=== PATIENT | female | born 1955 | race Caucasian/White ===

== ENCOUNTER → 2016-07-25 | Outpatient (CLI) | payer OTHER ==
[~2016-07-25] MED LIST: ASP81TEC; FISH OIL; NF-ESOM40C; NSTR15O TP; SULF1TAB38 PO
--- NOTE | 2016-07-25 08:39 | Diagnostic Imaging Report ---
EXAMINATION: Bilateral diagnostic mammogram with a Computer Aided Detection (CAD) system. INDICATION: Followup calcifications in the upper outer aspect of the right breast. COMPARISON: 05/18/2015 and other prior exams. FINDINGS: The right breast calcifications appear unchanged with minimal heterogeneity, in favor of dystrophic calcifications or related to a small calcifying fibroadenoma. Background scattered fibroglandular densities are seen without significant change. Allowing for technique and positional differences, no suspicious change is seen. IMPRESSION: No significant change. ACR BI-RADS Category 2: Benign findings. Result letter will be mailed to the patient. Note: At least 10% of breast cancer is not imaged by mammography. Dictated by: Dictated on workstation # [id number]
== END ==
LOC: RAD 07:31
PROVIDERS: ATTEND Nurse Practitioner Family
DX: R92.8 Other abnormal and inconclusive findings on diagnostic imaging of breast (principal)
CPT/HCPCS: 77066

== ENCOUNTER → 2016-07-26 | Outpatient (CLI) | payer OTHER ==
--- NOTE | 2016-07-26 13:55 | Diagnostic Imaging Report ---
PROCEDURE: US abdomen complete. TECHNIQUE: Multiple real-time grayscale images were obtained over the abdomen in various projections. INDICATION: Right upper quadrant pain. FINDINGS: The pancreas is obscured by bowel gas. The liver is slightly heterogeneous in echotexture with no definite focal lesion seen. There is hepatopetal flow in the portal vein. There is obscured CBD by bowel gas with no intrahepatic biliary dilatation evident. The gallbladder demonstrates no stones or wall thickening. Sonographic Klein's sign is reportedly negative. The spleen is 9.7 cm in length, normal. The distal segment of the abdominal aorta is only visualized and appears unremarkable. The IVC is largely obscured. The right kidney is 9.4 cm and the left kidney is 10.4 cm in length. There is mild cortical atrophy in the kidneys seen with no focal mass. No hydronephrosis. No fluid collection or ascites seen. IMPRESSION: There is slight cortical thinning in the kidneys. No hydronephrosis. No gallstones or evidence of cholecystitis. Dictated by: Dictated on workstation # [id number]
== END ==
LOC: RAD 07:37
PROVIDERS: ATTEND Nurse Practitioner Family
DX: R10.11 Right upper quadrant pain (principal)
CPT/HCPCS: 76700

== ENCOUNTER → 2016-08-14 | Outpatient (CLI) | payer OTHER ==
--- NOTE | 2016-08-14 10:07 | Diagnostic Imaging Report ---
EXAMINATION: Renal ultrasound. INDICATION: Renal atrophy. FINDINGS: The right kidney is 9.7 and the left kidney is 10.5 cm in length. There is no hydronephrosis or focal lesion. There is mild atrophy seen in the renal parenchyma. The urinary bladder appears unremarkable. IMPRESSION: Mild renal atrophy. Dictated by: Dictated on workstation # [id number]
== END ==
LOC: RAD 08:54
PROVIDERS: ATTEND Nurse Practitioner Family
DX: N26.1 Atrophy of kidney (terminal) (principal)
CPT/HCPCS: 76770

== ENCOUNTER → 2017-04-03 | Outpatient (CLI) | payer SELFPAY ==
--- NOTE | 2017-04-03 09:46 | Diagnostic Imaging Report ---
EXAMINATION: Ultrasound noninvasive. INDICATION: Leg pain and swelling Routine images were obtained. The ankle-brachial index on the right is 1.08, on the left 1.11 (normal 1.00 or greater). IMPRESSION: The ankle-brachial indices are within normal limits. Dictated by: Dictated on workstation # [id number]
--- NOTE | 2017-04-03 09:47 | Diagnostic Imaging Report ---
Procedure: Bilateral lower extremity venous Doppler. Indication: Leg pain and swelling. Findings: Spectral and color flow imaging of the deep venous system of each lower extremity was performed. There are no prior studies available for comparison. There is generally good blood flow and compressibility at all levels. There is no evidence for a deep venous stenosis of either lower extremity. Impression: There is no evidence for a deep venous of either lower extremity. Dictated by: Dictated on workstation # [id number]
== END ==
LOC: RAD 07:25
PROVIDERS: ATTEND Nurse Practitioner Family
DX: M79.89 Other specified soft tissue disorders (principal)
CPT/HCPCS: 93922; 93970

== ENCOUNTER → 2017-09-11 | Outpatient (CLI) | payer OTHER ==
--- NOTE | 2017-09-11 10:02 | Diagnostic Imaging Report ---
PROCEDURE: US Renal Bilateral. TECHNIQUE: Multiple real-time grayscale images were obtained over the kidneys in various projections bilaterally. INDICATION: Bilateral renal atrophy. FINDINGS: Right kidney measures 8.8 x 4.5 x 4.8 cm and the left kidney measures 10.2 x 5.4 x 5.8 cm. The cortical thickness and echogenicity is normal bilaterally. No calculi are seen. There is no hydronephrosis. Partially filled urinary bladder is unremarkable. Left ureteral jet was visualized. Right ureteral jet was not visualized IMPRESSION: Unremarkable renal ultrasound. Dictated by: Dictated on workstation # [id number]
== END ==
LOC: RAD 08:31
PROVIDERS: ATTEND Nurse Practitioner Family
DX: N26.1 Atrophy of kidney (terminal) (principal)
CPT/HCPCS: 76770

== ENCOUNTER → 2018-08-22 | Outpatient (CLI) | payer OTHER ==
--- NOTE | 2018-08-25 09:30 | Diagnostic Imaging Report ---
INDICATION: Screening. TECHNIQUE: The current study was also evaluated with a Computer Aided Detection (CAD) system. 3D Tomographic imaging was also performed. COMPARISON: 07/25/2016, 12/08/2015, and 05/17/2015. FINDINGS: There are scattered fibroglandular densities bilaterally. There are benign type calcifications in both breasts. There is no dominant mass, spiculated lesion, or suspicious calcification identified. The skin, nipples, and axillae are unremarkable. IMPRESSION: Benign findings. ACR BI-RADS Category 2: Benign findings. Result letter will be mailed to the patient. Note: At least 10% of breast cancer is not imaged by mammography. Dictated by: Dictated on workstation # [id number]
== END ==
LOC: RAD 07:40
PROVIDERS: ATTEND Nurse Practitioner Family
DX: Z12.31 Encounter for screening mammogram for malignant neoplasm of breast (principal)
CPT/HCPCS: 77067

== ENCOUNTER 2018-10-01 13:30 | Outpatient (CLI) | payer OTHER ==
[~2018-10-01] VITALS: Ht 162.6 cm; Wt 106.6 kg
[2018-10-01] MEDS ORDERED: HYDR25TA4 PO (13:55)
[2018-10-01] MEDS ORDERED: OXYB15TA PO (13:55)
[2018-10-01] MEDS ORDERED: NF-ESOM40C PO (13:55)
[2018-10-01] MEDS ORDERED: VNL75T PO (13:55)
== END 2018-10-01 13:56 | disposition home or self-care (01) ==
LOC: PREOP 13:30
PROVIDERS: ATTEND Surgery
DX: Z01.818 Encounter for other preprocedural examination (principal)

== ENCOUNTER 2018-10-06 09:02 | Day surgery (SDC) | payer OTHER ==
[2018-10-06] VITALS (7 sets, daily range): BP systolic 96–131; BP diastolic 51–65
[~2018-10-06] VITALS: Ht 162.6 cm; Wt 106.6 kg
[~2018-10-06 09:02] MED LIST changes: +HYDR25TA4 PO; +NF-ESOM40C PO; +OXYB15TA PO; +VNL75T PO
[2018-10-06] MEDS ORDERED: LACTATED RINGERS 1,000 ML IV STA (09:06)
[2018-10-06] MEDS ORDERED: LACTATED RINGERS 1,000 ML IV ONE (09:12)
[2018-10-06] MEDS ORDERED: MIDAZOLAM 2 MG/2 ML (VERSED) VIAL ONE (09:13)
[2018-10-06] MEDS ORDERED: PROPOFOL INJECTION 50 ML IV ONE ×2 (09:13→10:07)
[2018-10-06] MEDS ORDERED: MIDAZOLAM 2 MG/2 ML (VERSED) VIAL IVP ONE (09:15)
[2018-10-06] MEDS ORDERED: fentaNYL INJECTION 100 MCG/2 ML AMP IVP ONE (09:15)
--- NOTE | 2018-10-06 09:21 | Progress Note-Pre Operative ---
Pre-Operative Progress Note H&P Reviewed The H&P was reviewed, patient examined and no changes noted. Time Seen by Provider: 09:17 Date H&P Reviewed: Oct 06, 2018 Time H&P Reviewed: 09:18 Pre-Operative Diagnosis: Chronic Gastritis, + Hemoccult test MIRI TIRADO DO Oct 06, 2018 09:21
--- NOTE | 2018-10-06 10:28 | Progress Note-Post Operative ---
Post-Operative Progess Note Surgeon (s)/Brine Room Laborer (s) Surgeon MIRI TIRADO DO Brine Room Laborer: none Pre-Operative Diagnosis Chronic Gastritis, + Hemoccult test Post-Operative Diagnosis Gastritis Gastric Polyp Esophageal varices Diverticula Melanosis coli Internal hemorrhoids Mucosal spots Procedure & Operative Findings Date of Procedure 10/06/18 Procedure Performed/Findings EGD with bx Colon with bx Anesthesia Type IV sedation by HEALTH AND SAFETY TECHNICIAN Estimated Blood Loss Estimated blood loss (mL): scant Specimens/Packing Specimens Removed antral bx body of stomach bx Sigmoid colon bx MIRI TIRADO DO Oct 06, 2018 10:28
--- NOTE | 2018-10-06 10:29 | Endoscopy Discharge Instruct ---
Endo Procedure/Findings Findings 1.: Gastritis 2.: Diverticulosis 3.: Internal Hemorrhoids 4.: Other Findings (Small esophageal varices) Discharge Instructions - Activity: You might feel a little sleepy until tomorrow. This is due to the medicine you received to relax you. Until tomorrow, you should: NOT drive a car, operate machinery or power tools. NOT drink any alcoholic beverages. NOT make any important decisions or sign importortant papers. Do not return to work until tomorrow, unless otherwise instructed. Resume previous activities tomorrow. Diet: Start by taking liquids. If you tolerate liquids, advance to solid food. make appointment for one week Notify Physician - If you experience excessive bleeding, unusual abdominal pain, fever, or chest pain, contact your doctor immediately. Follow-Up: - I have received and understand the above instructions and will call my doctor if I have any further questions. Patient Signature Date Nurse Signature Other (Relationship) MIRI TIRADO DO Oct 06, 2018 10:29
--- NOTE | 2018-10-06 10:52 | Anesthesia-General Post-Op ---
MAC Patient Condition Mental Status/LOC: Same as Preop Cardiovascular: Satisfactory Nausea/Vomiting: Absent Respiratory: Satisfactory Pain: Controlled Complications: Absent Post Op Complications Complications None Follow Up Care/Instructions Patient Instructions None needed. Anesthesiology Discharge Order Discharge Order Patient is doing well, no complaints, stable vital signs, no apparent adverse anesthesia problems. No complications reported per nursing. ROSALIO RODRIGUEZ CRNA Oct 06, 2018 10:52
--- NOTE | 2018-10-08 15:00 | OPERATIVE REPORT ---
DATE OF SERVICE: 10/06/2018 PREOPERATIVE DIAGNOSES: 1. Gastritis. 2. Rectal bleed. POSTOPERATIVE DIAGNOSES: 1. Gastritis. 2. Gastric polyp. 3. Varices. 4. Diverticular. 5. Melanosis 6. Internal hemorrhoids. 7. Mucosal spots. PROCEDURES: 1. EGD with biopsy. 2. Colonoscopy with cold biopsy. SURGEON: Cristian Leggett DO LACING OPERATOR: None. ANESTHESIA: IV sedation by ENVIRONMENTAL HEALTH PHYSICIAN. SPECIMEN: One biopsy from the antrum, one biopsy from the body of stomach and then another sigmoid colon biopsy. BLOOD LOSS: Scant. FLUIDS: Per anesthesia. POSTOPERATIVE CONDITION: Stable. INDICATION FOR PROCEDURE: The patient is a 63-year-old female who has a history of gastritis and had been having some rectal bleeding and needed a workup. FINDINGS: The patient had gastritis. She had some gastric polyps. She had varices seen in the esophagus and the colon she had diverticula, melanosis, internal hemorrhoids and some mucosal spots that were biopsied in the sigmoid. PROCEDURE NOTE: After informed consent was obtained, the patient was brought to the endoscopy suite and placed in the bed in left lateral decubitus position. She was administered IV sedation by ENVIRONMENTAL HEALTH PHYSICIAN who then monitored his vitals the entire time, heart rate, blood pressure and pulse ox then started the procedure and transferred the scope down the mouth through the esophagus and into the stomach, pushed into the stomach. It looked like there was some gastritis, took a picture of this pushing the duodenum. Duodenum looked fine. Pulled back into the antrum, did a biopsy and then pulled back into the body of stomach, saw some polyps, took a picture and then did a biopsy of the body of stomach, retroflexed the scope. May have had a very small hiatal hernia, pulled the scope into the esophagus. The GE junction, which actually looked okay and then up in the esophagus medially up, saw some what looked like some beginnings of some varices, took a picture of this and then removed the scope. Then switched camera, switched gloves, went down below, started the colonoscopy and pushed the scope and on the way in noted some diverticula. Pushed all the way to 150 cm, able to get to the cecum, took a picture of appendiceal orifice, noted the ileocecal valve and then slowly withdrew the scope insufflating to look circumferentially at the howe looking at the cecum up the ascending colon to the hepatic flexure, then down the transverse colon, the splenic flexure, into the descending colon, saw some diverticula. In the sigmoid colon, saw some what looked like a spots, took a picture of this and then did a biopsy. I retroflexed the scope within the rectal vault, saw some minimal internal hemorrhoids, took a picture of this. Also took a picture of melanosis coli and then removed the scope. The patient tolerated the procedure well. She was recovered in endoscopy suite. Job ID: [id number] DocumentID: [id number] Dictated Date: 10/08/2018 10:03:54 [employer] Ebs Architect Date: 10/08/2018 14:59:52 Dictated By: CRISTIAN LEGGETT DO
== END 2018-10-06 11:20 | disposition home or self-care (01) ==
LOC: ENDO 09:02
PROVIDERS: ATTEND Surgery
DX: K29.50 Unspecified chronic gastritis without bleeding (principal); K21.9 Gastro-esophageal reflux disease without esophagitis; K31.7 Polyp of stomach and duodenum; I85.00 Esophageal varices without bleeding; K44.9 Diaphragmatic hernia without obstruction or gangrene; K63.89 Other specified diseases of intestine; K57.30 Diverticulosis of large intestine without perforation or abscess without bleeding; L81.4 Other melanin hyperpigmentation; K64.8 Other hemorrhoids; I10 Essential (primary) hypertension; E66.01 Morbid (severe) obesity due to excess calories; Z68.41 Body mass index [BMI] 40.0-44.9, adult; Z87.891 Personal history of nicotine dependence

== ENCOUNTER → 2019-10-16 | Outpatient (CLI) | payer OTHER ==
[~2019-10-16] MED LIST changes: -OXYB15TA PO; +OXYB15TA19 PO
--- NOTE | 2019-10-16 09:34 | Diagnostic Imaging Report ---
INDICATION: Routine screening. Comparison is made with prior mammogram from 08/22/2018 and 07/25/2016. 2-D and 3-D bilateral screening mammography was performed with CAD. Scattered fibroglandular densities are identified bilaterally. There are benign calcifications in both breasts. No mass or malignant appearing microcalcifications are identified. Axillae are unremarkable. IMPRESSION: BI-RADS Category 2 No mammographic features suspicious for malignancy are identified. ACR BI-RADS Category 2: Benign findings. Result letter will be mailed to the patient. Note: At least 10% of breast cancer is not imaged by mammography. Dictated by: Dictated on workstation # [id number]
== END ==
LOC: RAD 07:45
PROVIDERS: ATTEND Nurse Practitioner Family
DX: Z12.31 Encounter for screening mammogram for malignant neoplasm of breast (principal)
CPT/HCPCS: 77063; 77067

== ENCOUNTER 2022-07-25 05:47 | Outpatient (CLI) | payer MEDICARE, OTHER ==
[~2022-07-25] VITALS: Ht 162.5 cm; Wt 109.1 kg
[2022-07-26] MEDS ORDERED: NAPR-1070 PO (08:40)
[2022-07-26] MEDS ORDERED: ZINC11TA PO (08:40)
[2022-07-26] MEDS ORDERED: CA C1TAB75 PO (08:40)
[2022-07-26] MEDS ORDERED: ATOR20TA49 PO (08:40)
== END 2022-07-26 08:41 | disposition home or self-care (01) ==
LOC: PREOP 05:47
PROVIDERS: ATTEND Specialist
DX: Z01.818 Encounter for other preprocedural examination (principal)

== ENCOUNTER 2022-07-27 10:42 | Day surgery (SDC) | payer MEDICARE, OTHER ==
[~2022-07-27] VITALS: Ht 165.2 cm; Wt 109.1 kg
[~2022-07-27 10:42] MED LIST changes: +ATOR20TA49 PO; +CA C1TAB75 PO; +NAPR-1070 PO; +ZINC11TA PO
[2022-07-27] MEDS ORDERED: MOXIFLOXACIN OPHTH SOLN 5 MG/ML 0.3 ML SYRINGE OP ONE (11:45)
[2022-07-27] MEDS ORDERED: TIMOLOL 0.5% (CATARACTS) 0.3 ML BTL OU PRN (11:45)
[2022-07-27] MEDS ORDERED: POVIDONE (BETADINE) OPHTH SOLN 5% 30 ML OP ONE (11:45)
[2022-07-27] MEDS: TETRACAINE 0.5% OPHTH SOLN 4 ML BTL (SINGLE DOSE ONLY) OU PRN ×4 (12:06→12:24)
[2022-07-27] MEDS: TROPICAMIDE 1% OPH SOLN (MYDRIACYL) 15 ML BTL OP SCH ×3 (12:13→12:24)
[2022-07-27] MEDS: PHENYLEPHRINE 10% OPHTH (NEO-SYN) 5 ML BTL OU SCH ×3 (12:13→12:24)
[2022-07-27 12:14] VITALS: BP 137/58
[2022-07-27] MEDS ORDERED: MIDAZOLAM 2 MG/2 ML (VERSED) VIAL ONE (12:36)
--- NOTE | 2022-07-27 12:54 | Ophthalmologist Pre-Op Note ---
Pre-Operative Progress Note H&P Reviewed The H&P was reviewed, patient examined and no changes noted. Date H&P Reviewed: Jul 27, 2022 Time H&P Reviewed: 12:54 Pre-Op Dx Cataract, Right Eye PATITO CARRILLO MD Jul 27, 2022 12:54
--- NOTE | 2022-07-27 13:13 | Ophthalmology Operative Report ---
Cataract removal/placement IOL PREOPERATIVE DIAGNOSIS: Cataract Right Eye POSTOPERATIVE DIAGNOSIS: Cataract Right Eye PROCEDURE: Cataract removal and placement of posterior chamber implant, right eye SURGEON: Oswald Carrillo ANESTHESIA: Topical with sedation COMPLICATIONS: None ESTIMATED BLOOD LOSS: Minimal DESCRIPTION OF PROCEDURE: After proper informed consent was obtained, the patient, a 66 female, was taken to the Operating Room and the right eye was anesthetized with tetracaine. The right eye was then prepped and draped in the usual manner. A wire lid speculum was placed. A paracentesis was made at the left hand position. Preservative free lidocaine was injected into the anterior chamber followed by viscoelastic. A clear corneal incision was made in the temporal position. A capsulorrhexis was preformed and the central nuclear and cortical material were removed. The posterior capsule was polished and Herminio 22.5 AU00T0 IOL was placed into the capsular bag. The residual viscoelastic was aspirated and balanced saline solution was injected into the anterior chamber. Moxifloxacin was injected into the anterior chamber. The wound was checked and found to be water tight. The patient tolerated the procedure well without complications. OSWALD CARRILLO MD Jul 27, 2022 13:13
[2022-07-27 13:17] VITALS: BP 127/58
--- NOTE | 2022-07-27 13:22 | Anesthesia-General Post-Op ---
MAC Patient Condition Mental Status/LOC: Same as Preop Cardiovascular: Satisfactory Nausea/Vomiting: Absent Respiratory: Satisfactory Pain: Controlled Complications: Absent Post Op Complications Complications None Follow Up Care/Instructions Patient Instructions None needed. Anesthesiology Discharge Order Discharge Order Patient is doing well, no complaints, stable vital signs, no apparent adverse anesthesia problems. No complications reported per nursing. ROSALIO RODRIGUEZ CRNA Jul 27, 2022 13:22
[2022-07-27] MEDS ORDERED: acetaZOLAMIDE ER 500 MG CAP (DIAMOX SEQUELS) PO ONE (14:15)
== END 2022-07-27 13:19 | disposition home or self-care (01) ==
LOC: SDC 10:42
PROVIDERS: ATTEND Specialist
DX: H25.9 Unspecified age-related cataract (principal); Z87.891 Personal history of nicotine dependence
CPT/HCPCS: 66984; V2632

== ENCOUNTER → 2022-08-06 | Outpatient (CLI) | payer MEDICARE, OTHER | END | disposition home or self-care (01) | LOC: PREOP 05:41 | PROVIDERS: ATTEND Specialist | DX: Z01.818 Encounter for other preprocedural examination (principal) ==

== ENCOUNTER 2022-08-10 07:30 | Day surgery (SDC) | payer MEDICARE, OTHER ==
[~2022-08-10] VITALS: Ht 162.5 cm; Wt 109.1 kg
[2022-08-10] MEDS ORDERED: POVIDONE (BETADINE) OPHTH SOLN 5% 30 ML OP ONE (07:45)
[2022-08-10] MEDS: PHENYLEPHRINE 10% OPHTH (NEO-SYN) 5 ML BTL OU SCH ×3 (07:45→07:55)
[2022-08-10] MEDS: TETRACAINE 0.5% OPHTH SOLN 4 ML BTL (SINGLE DOSE ONLY) OU PRN ×3 (07:45→07:55)
[2022-08-10] MEDS ORDERED: TIMOLOL 0.5% (CATARACTS) 0.3 ML BTL OU PRN (07:45)
[2022-08-10] MEDS ORDERED: MOXIFLOXACIN OPHTH SOLN 5 MG/ML 0.3 ML SYRINGE OP ONE (07:45)
[2022-08-10 07:48] VITALS: BP 122/74
[2022-08-10] MEDS: TROPICAMIDE 1% OPH SOLN (MYDRIACYL) 15 ML BTL OP SCH ×2 (07:51→07:55)
[2022-08-10] MEDS ORDERED: MIDAZOLAM 2 MG/2 ML (VERSED) VIAL ONE (08:10)
--- NOTE | 2022-08-10 08:27 | Ophthalmologist Pre-Op Note ---
Pre-Operative Progress Note H&P Reviewed The H&P was reviewed, patient examined and no changes noted. Date H&P Reviewed: Aug 10, 2022 Time H&P Reviewed: 08:27 Pre-Op Dx Cataract, Left Eye PATITO CARRILLO MD Aug 10, 2022 08:27
--- NOTE | 2022-08-10 08:50 | Ophthalmology Operative Report ---
Cataract removal/placement IOL PREOPERATIVE DIAGNOSIS: Cataract Left Eye POSTOPERATIVE DIAGNOSIS: Cataract Left Eye PROCEDURE: Cataract removal and placement of posterior chamber implant, left eye SURGEON: Oswald Carrillo ANESTHESIA: Topical with sedation COMPLICATIONS: None ESTIMATED BLOOD LOSS: Minimal DESCRIPTION OF PROCEDURE: After proper informed consent was obtained, the patient, a 67 female, was taken to the Operating Room and the left eye was anesthetized with tetracaine. The left eye was then prepped and draped in the usual manner. A wire lid speculum was placed. A paracentesis was made at the left hand position. Preservative free lidocaine was injected into the anterior chamber followed by viscoelastic. A clear corneal incision was made in the temporal position. A capsulorrhexis was preformed and the central nuclear and cortical material were removed. The posterior capsule was polished and an Herminio 22.0 AU00T0 was placed into the capsular bag. The residual viscoelastic was aspirated and balanced saline solution was injected into the anterior chamber. Moxifloxacin was injected into the anterior chamber. The wound was checked and found to be water tight. The patient tolerated the procedure well without complications. OSWALD CARRILLO MD Aug 10, 2022 08:50
[2022-08-10 08:56] VITALS: BP 140/56
[2022-08-10] MEDS ORDERED: acetaZOLAMIDE ER 500 MG CAP (DIAMOX SEQUELS) PO ONE (10:15)
--- NOTE | 2022-08-10 13:40 | Anesthesia-General Post-Op ---
MAC Patient Condition Mental Status/LOC: Same as Preop Cardiovascular: Satisfactory Nausea/Vomiting: Absent Respiratory: Satisfactory Pain: Controlled Complications: Absent Post Op Complications Complications None Follow Up Care/Instructions Patient Instructions None needed. Anesthesiology Discharge Order Discharge Order Patient was doing well this morning after the procedure with no complaints, stable vital signs, no apparent adverse anesthesia problems. No complications reported per nursing. LEIDY MARAVILLA DO Aug 10, 2022 13:39
== END 2022-08-10 09:00 | disposition home or self-care (01) ==
LOC: SDC 07:30
PROVIDERS: ATTEND Specialist
DX: H25.9 Unspecified age-related cataract (principal); F17.200 Nicotine dependence, unspecified, uncomplicated
CPT/HCPCS: 66984; V2632